=== PATIENT | female | born 1980 | race Asian ===

== ENCOUNTER 2017-03-14 04:30 | Inpatient (IN) | payer BC ==
[~2017-03-14] VITALS: Ht 152.4 cm; Wt 74.8 kg
[2017-03-14] MEDS ORDERED: LR 1,000 ML IV ONE (04:53)
[2017-03-14] MEDS ORDERED: NALBUPHINE HCL 10 MG/ML AMP IVP PRN (05:00)
[2017-03-14] MEDS ORDERED: AMPICILLIN SODIUM 2 GM in NS 100 ML IV ONE (05:00)
[2017-03-14] MEDS ORDERED: AMPICILLIN SODIUM 2 GM VIAL ONE (05:28)
[2017-03-14] MEDS: LR 1,000 ML IV SCH ×2 (05:40→08:58)
[2017-03-14 06:59] VITALS: BP_SYST 129
[2017-03-14 07:17] LABS: BASOPHILS # (AUTO) 0.1 K/uL (0.0-0.2); BASOPHILS % (AUTO) 0.8 % (0.0-2.0); EOSINOPHILS # (AUTO) 0.1 K/uL (0.0-0.4); EOSINOPHILS % (AUTO) 0.7 % (0.0-4.0); HEMATOCRIT 38.4 % (36-48); HEMOGLOBIN 13.3 g/dL (12.0-16.0); LYMPHOCYTES # (AUTO) 1.2 K/uL (1.0-5.5); LYMPHOCYTES % (AUTO) 8.8 % (20.5-51.5); MEAN CORPUSCULAR HEMOGLOBIN 34 pg (27-31); MEAN CORPUSCULAR HGB CONC 35 % (32-36); MEAN CORPUSCULAR VOLUME 97 fL (79.0-98.0); MONOCYTES # (AUTO) 0.5 K/uL (0.0-1.0); MONOCYTES % (AUTO) 3.7 % (1.7-9.3); PLATELET COUNT (AUTO) 189 K/uL (130-430); RED BLOOD CELL COUNT(AUTO) 3.98 MIL/uL (4.2-6.2); RED CELL DISTRIBUTION WIDTH 11.6 % (9.0-15.0); WHITE BLOOD COUNT (AUTO) 13.9 K/uL (4.8-10.8)
[2017-03-14] MEDS ORDERED: fentaNYL CITRATE/PF 100 MCG/2 ML AMP ONE (07:43)
[2017-03-14] MEDS ORDERED: LR 500 ML IV ONE (08:19)
[2017-03-14] MEDS ORDERED: DIPHENHYDRAMINE INJ 50 MG/ML VIAL IVP PRN (08:30)
[2017-03-14] MEDS ORDERED: FENT2mCg/mL-ROPIVA0.2%/NS EPID 150 ML EP SCH (08:30)
[2017-03-14] MEDS ORDERED: LIDOCAINE PF 2%, 200 MG/10 ML AMPUL.LUER (EPIDURAL) INJ ONE ×2 (08:45→08:48)
[2017-03-14] MEDS ORDERED: ROPIVACAINE 0.2% (NAROPIN) PF SOLUTION 100 ML BOTTLE EP ONE (08:48)
[2017-03-14] MEDS: OXYTOCIN/NORMAL SALINE 1,000 ML IV SCH (08:56)
[2017-03-14] MEDS: AMPICILLIN SODIUM 1 GM in NS 50 ML IV SCH ×3 (09:42→18:16)
[2017-03-14] MEDS ORDERED: TEMAZEPAM 15 MG CAPSULE PO PRN (21:00)
[2017-03-14] MEDS ORDERED: CEFAZOLIN 2 GM IVPB PREMIX 50 ML IV ONE (22:47)
[2017-03-14] MEDS ORDERED: LR 1,000 ML IV SCH ×2 (23:12→23:50)
[2017-03-14] MEDS ORDERED: KETOROLAC TROMETHAMINE 60 MG/2 ML VIAL IM PRN (23:15)
[2017-03-14] MEDS ORDERED: ONDANSETRON HCL 4 MG/2 ML VIAL IVP PRN (23:15)
[2017-03-14] MEDS ORDERED: METOCLOPRAMIDE HCL 10 MG/2 ML VIAL IVP PRN (23:15)
[2017-03-14] MEDS ORDERED: MORPHINE SULFATE 10MG/10ML PF AMP EP SCH (23:15)
[2017-03-14] MEDS ORDERED: MORPHINE 4 MG/ML INJ. SYRINGE IVP PRN ×3 (23:15)
[2017-03-14] MEDS ORDERED: DIPHENHYDRAMINE INJ 50 MG/ML VIAL IM PRN (23:15)
[2017-03-14] MEDS ORDERED: NALOXONE HCL 0.4 MG/ML AMP (NARCAN) IVP PRN (23:15)
[2017-03-14] MEDS ORDERED: OXYTOCIN/NORMAL SALINE 1,000 ML IV ONE (23:50)
[2017-03-14 23:55] VITALS: BP_SYST 117
[2017-03-14] MEDS ORDERED: KETAMINE HCL 500 MG/10 ML VIAL IVP ONE (23:55)
[2017-03-14] MEDS ORDERED: ONDANSETRON HCL 4 MG/2 ML VIAL IVP ONE (23:55)
[2017-03-14] MEDS ORDERED: LIDOCAINE 2%, 20 ML MDV INJ ONE (23:55)
[2017-03-14] MEDS ORDERED: MORPHINE SULFATE 10MG/10ML PF AMP EP ONE (23:55)
[2017-03-14] MEDS ORDERED: LR 1,000 ML IV.SOLN IV ONE (23:55)
[2017-03-14] MEDS ORDERED: MIDAZOLAM HCL 5 MG/ML VIAL (VERSED) IV ONE (23:55)
[2017-03-14] MEDS ORDERED: NS IRRIG SOLN 1000 ML IR ONE (23:55)
[2017-03-15] MEDS ORDERED: DIPH-TET-PERTUS Vaccine 0.5 ML VIAL (ADACEL) I.M. PRN
[2017-03-15] MEDS ORDERED: SENNOSIDES/DOCUSATE SODIUM 1 TAB TABLET(SENOKOT-S) PO PRN
[2017-03-15] MEDS ORDERED: HYDROcodone/ACETAMIN 5-325 MG TAB (NORCO/ VICODIN) PO PRN
[2017-03-15] MEDS ORDERED: MEASLES,MUMPS&RUBELLA VACC/PF 12500 UNIT/0.5 ML VIAL SUBQ PRN
[2017-03-15] MEDS ORDERED: BISACODYL 10 MG/SUPPOSITORY RC PRN
[2017-03-15] MEDS ORDERED: LANOLIN 7 GM OINT. TP PRN
[2017-03-15] MEDS ORDERED: ANUSOL 1 EA SUPP.RECT (PREPARATION H) RC PRN
[2017-03-15] MEDS ORDERED: RHO(D) IMMUNE GLOBULIN/MALTOSE 1500 UNITS/1.3 ML (WINHRO) IM PRN
[2017-03-15] MEDS ORDERED: OXYTOCIN/NORMAL SALINE 1,000 ML IV ONE (00:07)
[2017-03-15] MEDS ORDERED: MIDAZOLAM HCL 2 MG/2 ML VIAL (VERSED) IVP ONE (00:15)
[2017-03-15] MEDS: OXYTOCIN/NORMAL SALINE 1,000 ML IV SCH (00:23)
[2017-03-15] MEDS: CEFAZOLIN 1 GM IVPB PREMIX 50 ML IV SCH ×2 (04:34→10:16)
[2017-03-15 06:09] LABS: HEMOGLOBIN 12.3 g/dL (12.0-16.0); MEAN CORPUSCULAR HEMOGLOBIN 34 pg (27-31); MEAN CORPUSCULAR HGB CONC 35 % (32-36); MEAN CORPUSCULAR VOLUME 98 fL (79.0-98.0); PLATELET COUNT (AUTO) 187 K/uL (130-430); RED BLOOD CELL COUNT(AUTO) 3.57 MIL/uL (4.2-6.2); RED CELL DISTRIBUTION WIDTH 11.9 % (9.0-15.0); WHITE BLOOD COUNT (AUTO) 24.2 K/uL (4.8-10.8)
[2017-03-15] MEDS: DOCUSATE SODIUM 100 MG CAPSULE PO PRN ×2 (08:56→21:13)
[2017-03-15] MEDS: SIMETHICONE 80 MG TAB.CHEW PO PRN ×3 (08:57→21:13)
[2017-03-15 08:58] LABS: BAND % (MANUAL) 5 % (0-6); BASOPHILS % (MANUAL) 0 % (0-2); EOSINOPHILS % (MANUAL) 0 % (0-7); LYMPHOCYTES % (MANUAL) 6 % (20-46); MONOCYTES % (MANUAL) 3 % (0-11)
[2017-03-15] MEDS: KETOROLAC TROMETHAMINE 30 MG VIAL IVP SCH ×2 (12:26→23:57)
[2017-03-16] MEDS: SIMETHICONE 80 MG TAB.CHEW PO PRN ×2 (06:00→12:37)
[2017-03-16] MEDS: IBUPROFEN 600 MG TABLET PO SCH ×4 (06:00→23:55)
[2017-03-16] MEDS: DOCUSATE SODIUM 100 MG CAPSULE PO PRN ×2 (06:00→12:37)
[2017-03-16] MEDS: OXYCODONE/ACETAMINOPHEN 5-325 TABLET PO PRN ×3 (08:34→20:59)
[2017-03-17] MEDS: IBUPROFEN 600 MG TABLET PO SCH ×2 (06:10→12:21)
[2017-03-17] MEDS: DOCUSATE SODIUM 100 MG CAPSULE PO PRN (06:10)
[2017-03-17] MEDS: OXYCODONE/ACETAMINOPHEN 5-325 TABLET PO PRN ×2 (06:19→12:23)
== END 2017-03-17 15:12 | disposition home or self-care (01) | DRG 766 ==
LOC: SPU 04:30
PROVIDERS: ADMIT Specialist; ATTEND Specialist
PROC: 10D00Z1 Extraction of Products of Conception, Low, Open Approach (ICD-10-PCS; 2017-03-14)
PROC: 00HU33Z Insertion of Infusion Device into Spinal Canal, Percutaneous Approach (ICD-10-PCS; 2017-03-14)
PROC: 3E0R3BZ Introduction of Anesthetic Agent into Spinal Canal, Percutaneous Approach (ICD-10-PCS; principal; 2017-03-14 22:15)
DX: O33.9 Maternal care for disproportion, unspecified (principal); O62.2 Other uterine inertia; O76 Abnormality in fetal heart rate and rhythm complicating labor and delivery; O99.824 Streptococcus B carrier state complicating childbirth; Z3A.38 38 weeks gestation of pregnancy; Z37.0 Single live birth
CPT/HCPCS: 36415; 81002-TC; 85007; 85025; 85027; 86592; 86886; 86900; 86901; 90715; 94760; J0290; J0690; J1200; J1885; J2001; J2250; J2270; J2274; J2405; J2590; J2795; J3010; J3465; J7120

== ENCOUNTER 2019-02-01 23:11 | Inpatient (IN) | payer BC ==
[~2019-02-01] VITALS: Ht 152.4 cm; Wt 79.4 kg
[~2019-02-01 23:11] MED LIST: LR 1,000 ML IV.SOLN IV ONE; MORPHINE SULFATE 10MG/10ML PF AMP EP ONE; NS IRRIG SOLN 1000 ML IR ONE; TRIAMCINOLONE ACETONIDE 40 MG/ML IM ONE
[2019-02-01] MEDS ORDERED: LR 1,000 ML IV SCH (23:25)
[2019-02-01] MEDS ORDERED: CEFAZOLIN 2 GM IVPB PREMIX 50 ML IV ONE (23:30)
[2019-02-02 00:07] LABS: BASOPHILS % (AUTO) 0.4 % (0.0-2.0); EOSINOPHILS # (AUTO) 0.3 K/uL (0.0-0.4); EOSINOPHILS % (AUTO) 2.4 % (0.0-4.0); HEMATOCRIT 37.9 % (36-48); HEMOGLOBIN 13.3 g/dL (12.0-16.0); LYMPHOCYTES # (AUTO) 2.1 K/uL (1.0-5.5); LYMPHOCYTES % (AUTO) 18.5 % (20.5-51.5); MEAN CORPUSCULAR HEMOGLOBIN 34 pg (27-31); MEAN CORPUSCULAR HGB CONC 35 % (32-36); MEAN CORPUSCULAR VOLUME 98 fL (79.0-98.0); MONOCYTES # (AUTO) 0.5 K/uL (0.0-1.0); MONOCYTES % (AUTO) 4.6 % (1.7-9.3); NEUTROPHILS # (AUTO) 8.3 K/uL (1.8-7.7); NEUTROPHILS % (AUTO) 74.1 % (40.0-70.0); PLATELET COUNT (AUTO) 164 K/uL (130-430); RED BLOOD CELL COUNT(AUTO) 3.89 MIL/uL (4.2-6.2); RED CELL DISTRIBUTION WIDTH 12.8 % (9.0-15.0); WHITE BLOOD COUNT (AUTO) 11.2 K/uL (4.8-10.8)
[2019-02-02] MEDS ORDERED: TERBUTALINE SULFATE 1 MG/ML VIAL SUBCUT ONE (00:15)
[2019-02-02] MEDS ORDERED: AMPICILLIN SODIUM 2 GM in NS 100 ML IV ONE (00:15)
[2019-02-02 00:52] LABS: BILIRUBIN,URINE NEGATIVE (NEGATIVE); BLOOD, URINE 3+ (NEGATIVE); CLARITY/URINE CLOUDY (CLEAR); COLOR,URINE YELLOW (YELLOW); GLUCOSE,URINE NEGATIVE (NEGATIVE); KETONES,URINE NEGATIVE (NEGATIVE); LEUKOCYTE ESTERASE ,URINE 1+ (NEGATIVE); NITRITE, URINE NEGATIVE (NEGATIVE); PH,URINE 7.5 (5.0-8.0); PROTEIN URINE 2+ (NEGATIVE); UROBILINOGEN,URINE 0.2 (0.2-1.0)
[2019-02-02 01:05] LABS: BACTERIA,URINE MANY /HPF (None Seen); MUCUS,URINE 2+ /LPF (None Seen); RBC,URINE 50-80 /HPF (0-3)
[2019-02-02 01:09] VITALS: BP_SYST 132
[2019-02-02] MEDS ORDERED: AMPICILLIN SODIUM 2 GM VIAL ONE (02:22)
[2019-02-02] MEDS ORDERED: AMPICILLIN SODIUM 1 GM in NS 50 ML IV SCH (04:00)
[2019-02-02] MEDS ORDERED: AMPICILLIN SODIUM 1 GM VIAL ONE (06:33)
[2019-02-02] MEDS ORDERED: NALBUPHINE HCL 10 MG/ML AMP IVP PRN (07:30)
[2019-02-02] MEDS ORDERED: fentaNYL CITRATE/PF 100 MCG/2 ML AMP IVP PRN ×2 (07:30)
[2019-02-02] MEDS ORDERED: NALOXONE HCL 0.4 MG/ML AMP (NARCAN) IVP PRN ×2 (07:30)
[2019-02-02] MEDS ORDERED: MORPHINE SULFATE 10MG/10ML PF AMP SP SCH (07:30)
[2019-02-02] MEDS ORDERED: ONDANSETRON HCL 4 MG/2 ML VIAL IVP PRN (07:30)
[2019-02-02] MEDS ORDERED: KETOROLAC TROMETHAMINE 60 MG/2 ML VIAL IM PRN (07:30)
[2019-02-02] MEDS ORDERED: LR 1,000 ML IV SCH (07:40)
[2019-02-02] MEDS ORDERED: LANOLIN 7 GM OINT. TP PRN (07:45)
[2019-02-02] MEDS ORDERED: RHO(D) IMMUNE GLOBULIN/MALTOSE 1500 UNITS/1.3 ML (WINHRO) IM PRN (07:45)
[2019-02-02] MEDS ORDERED: ANUSOL 1 EA SUPP.RECT (PREPARATION H) RC PRN (07:45)
[2019-02-02] MEDS ORDERED: TEMAZEPAM 15 MG CAPSULE PO PRN (07:45)
[2019-02-02] MEDS ORDERED: MEASLES,MUMPS&RUBELLA VACC/PF 12500 UNIT/0.5 ML VIAL SUBQ PRN (07:45)
[2019-02-02] MEDS ORDERED: HYDROcodone/ACETAMIN 5-325 MG TAB (NORCO/ VICODIN) PO PRN (07:45)
[2019-02-02] MEDS ORDERED: BISACODYL 10 MG/SUPPOSITORY RC PRN (07:45)
[2019-02-02] MEDS ORDERED: OXYCODONE/ACETAMINOPHEN 5-325 TABLET PO PRN (07:45)
[2019-02-02] MEDS ORDERED: SENNOSIDES/DOCUSATE SODIUM 1 TAB TABLET(SENOKOT-S) PO PRN (07:45)
[2019-02-02] MEDS ORDERED: DIPH-TET-PERTUS Vaccine 0.5 ML VIAL (ADACEL) I.M. PRN (07:45)
[2019-02-02 08:40] VITALS: BP_SYST 109
[2019-02-02] MEDS ORDERED: OXYTOCIN 10 UNIT/ML VIAL ONE (08:41)
[2019-02-02] MEDS: CEFAZOLIN 1 GM IVPB PREMIX 50 ML IV SCH ×2 (13:45→18:47)
[2019-02-02] MEDS: OXYTOCIN/0.9 % SODIUM CHLORIDE 1,000 ML IV SCH (15:21)
[2019-02-02] MEDS: KETOROLAC TROMETHAMINE 30 MG VIAL IVP SCH (18:46)
[2019-02-02] MEDS: DIPHENHYDRAMINE INJ 50 MG/ML VIAL IVP PRN (20:54)
[2019-02-03] MEDS: CEFAZOLIN 1 GM IVPB PREMIX 50 ML IV SCH (00:11)
[2019-02-03] MEDS: KETOROLAC TROMETHAMINE 30 MG VIAL IVP SCH ×2 (00:16→05:39)
[2019-02-03] MEDS: OXYTOCIN/0.9 % SODIUM CHLORIDE 1,000 ML IV SCH (01:43)
[2019-02-03] MEDS: SIMETHICONE 80 MG TAB.CHEW PO PRN ×2 (05:44→21:05)
[2019-02-03] MEDS: DIPHENHYDRAMINE INJ 50 MG/ML VIAL IVP PRN (05:45)
[2019-02-03 06:39] LABS: BASOPHILS % (AUTO) 0.2 % (0.0-2.0); EOSINOPHILS # (AUTO) 0.1 K/uL (0.0-0.4); EOSINOPHILS % (AUTO) 0.4 % (0.0-4.0); HEMATOCRIT 28.8 % (36-48); HEMOGLOBIN 10.2 g/dL (12.0-16.0); LYMPHOCYTES # (AUTO) 1.3 K/uL (1.0-5.5); LYMPHOCYTES % (AUTO) 8.5 % (20.5-51.5); MEAN CORPUSCULAR HEMOGLOBIN 35 pg (27-31); MEAN CORPUSCULAR HGB CONC 36 % (32-36); MEAN CORPUSCULAR VOLUME 98 fL (79.0-98.0); MONOCYTES # (AUTO) 0.7 K/uL (0.0-1.0); MONOCYTES % (AUTO) 4.4 % (1.7-9.3); NEUTROPHILS # (AUTO) 13.4 K/uL (1.8-7.7); NEUTROPHILS % (AUTO) 86.5 % (40.0-70.0); PLATELET COUNT (AUTO) 167 K/uL (130-430); RED BLOOD CELL COUNT(AUTO) 2.95 MIL/uL (4.2-6.2); RED CELL DISTRIBUTION WIDTH 12.7 % (9.0-15.0); WHITE BLOOD COUNT (AUTO) 15.5 K/uL (4.8-10.8)
[2019-02-03] MEDS: IBUPROFEN 600 MG TABLET PO SCH ×2 (12:25→18:23)
[2019-02-03] MEDS: DOCUSATE SODIUM 100 MG CAPSULE PO PRN ×2 (14:01→21:04)
[2019-02-03] MEDS: OXYCODONE/ACETAMINOPHEN *10*mg/325 mg TABLET PO PRN ×2 (14:02→21:04)
[2019-02-04] MEDS: IBUPROFEN 600 MG TABLET PO SCH ×3 (00:29→12:40)
[2019-02-04] MEDS: OXYCODONE/ACETAMINOPHEN *10*mg/325 mg TABLET PO PRN ×2 (00:44→06:10)
[2019-02-04] MEDS: DOCUSATE SODIUM 100 MG CAPSULE PO PRN (06:10)
[2019-02-04] MEDS: SIMETHICONE 80 MG TAB.CHEW PO PRN (12:39)
== END 2019-02-04 16:12 | disposition home or self-care (01) | DRG 788 ==
LOC: SPU 23:11 → OBSVTOIN 23:11
PROVIDERS: ADMIT Specialist; ATTEND Specialist
PROC: 10D00Z1 Extraction of Products of Conception, Low, Open Approach (ICD-10-PCS; principal; 2019-02-02 06:30)
DX: O34.211 Maternal care for low transverse scar from previous cesarean delivery (principal); O99.89 Other specified diseases and conditions complicating pregnancy, childbirth and the puerperium; N73.6 Female pelvic peritoneal adhesions (postinfective); Z37.0 Single live birth; Z3A.39 39 weeks gestation of pregnancy
CPT/HCPCS: 36415; 81000-TC; 85025; 86592; 86886; 86900; 86901; 87086; 94760; J0290; J0690; J1200; J1885; J2274; J2405; J2590; J3105; J3301; J7120